=== PATIENT | male | born 1970 | race Caucasian/White ===

== ENCOUNTER 2017-10-04 17:17 | Emergency (ER) | payer MEDICAID ==
[2017-10-04 17:26] VITALS: BP 171/93
--- NOTE | 2017-10-04 19:09 | ED Physician Documentation ---
PD HPI HEENT - Stated complaint Stated Complaint: FACE ABCESS/CONGESTION - Chief complaint Chief Complaint: Heent - History obtained from History obtained from: Patient - History of Present Illness Timing - onset: How many days ago (3) Timing - duration: Days (3) Timing - details: Gradual onset, Still present (swelling of right cheek and pain in teeth upper that side.) Location: Tooth Associated symptoms: Congestion, Swollen nodes. No: Fever Similar symptoms before: Has not had sx before Recently seen: Not recently seen Review of Systems Constitutional: reports: Myalgias. denies: Fever, Chills Nose: reports: Congestion, Sinus pressure / pain Throat: denies: Sore throat PD PAST MEDICAL HISTORY - Past Medical History Past Medical History: Yes Cardiovascular: Hypertension Neuro: TIA - Past Surgical History Past Surgical History: Yes General: Bowel surgery Ortho: Other - Present Medications Home Medications: Ambulatory Orders Medication Instructions Recorded Confirmed Ibuprofen [Motrin] 800 mg PO Q8H PRN #30 tablet 08/29/16 Nadolol 20 mg ORAL DAILY 08/29/16 08/29/16 Albuterol Sulf [Ventolin Hfa 1 - 2 puffs INH Q4HR PRN #1 inhaler 10/04/17 Inhaler] Dexamethasone [Decadron] 4 mg PO DAILY #5 tablet 10/04/17 Doxycycline Monohydrate 100 mg PO BID #14 tablet 10/04/17 HYDROcod/ACETAM 5/325 [[place] 5/325] 1 tab PO Q6H PRN #15 tablet 10/04/17 - Allergies Allergies/Adverse Reactions: Allergies Allergy/AdvReac Type Severity Reaction Status Date / Time No Known Drug Allergies Allergy Verified 10/04/17 17:25 - Social History Does the pt smoke?: No Smoking Status: Never smoker Does the pt drink ETOH?: No Does the pt have substance abuse?: No - Immunizations Immunizations are current?: Yes - POLST Patient has POLST: No PD ED PE NORMAL - Vitals Vital signs reviewed: Yes - General General: Alert and oriented X 3, Well developed/nourished - HEENT HEENT: Moist mucous membranes - Neck Neck: Supple, no meningeal sign, No adenopathy - Cardiac Cardiac: RRR, No murmur - Respiratory Respiratory: Clear bilaterally - Abdomen Abdomen: Soft, Non tender - Male Male : Deferred - Rectal Rectal: Deferred - Back Back: No CVA TTP - Derm Derm: Normal color, Warm and dry - Neuro Neuro: Alert and oriented X 3, 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, No motor deficit, Normal speech Eye Opening: Spontaneous Motor: Obeys Commands Verbal: Oriented GCS Score: 15 - Psych Psych: Normal mood Results - Vitals Vitals: Oxygen O2 Source Room air PD MEDICAL DECISION MAKING - ED course Complexity details: d/w patient Departure - Departure Disposition: 01 Home, Self Care Clinical Impression: Dental infection Upper respiratory infection Qualifiers: URI type: unspecified URI Qualified Code(s): J06.9 - Acute upper respiratory infection, unspecified Condition: Stable Record reviewed to determine appropriate education?: Yes Instructions: ED Upper Resp Infec Abx Tx, ED Abscess Dental Prescriptions: Albuterol Sulf [Ventolin Hfa Inhaler] 1 - 2 puffs INH Q4HR PRN #1 inhaler PRN Reason: Shortness Of Air/Wheezing Dexamethasone [Decadron] 4 mg PO DAILY #5 tablet Doxycycline Monohydrate 100 mg PO BID #14 tablet HYDROcod/ACETAM 5/325 [[place] 5/325] 1 tab PO Q6H PRN #15 tablet PRN Reason: Pain Comments: For the dental infection, I would use ibuprofen 3 times a day for inflammation and pain. Add hydrocodone if needed for pain. Doxycycline antibiotic twice daily for a week for the infection. Warm moist towels to the area periodically to improve blood flow to help fight any infection. For the respiratory infection, this most likely is viral and treated with Decadron for bronchial inflammation and albuterol inhaler 2 puffs 4 times a day. The hydrocodone can be used for cough suppressant as well as the pain. It uncommonly would be bacterial but we be covering it with the antibiotics for the facial infection anyway. Recheck if not improving over the next few days. You will need to follow-up with the dentist for more definitive care of the tooth. Discharge Date/Time: 10/04/17 19:30
[2017-10-04] MEDS ORDERED: DEXAMETHASONE 10 MG/ML VIAL PO STA (19:19)
[2017-10-04] MEDS ORDERED: DOXYCYCLINE 100 MG TABLET PO STA (19:19)
[2017-10-04] MEDS ORDERED: IBUPROFEN 600 MG TABLET PO STA (19:19)
[2017-10-04] MEDS ORDERED: IBUPROFEN 600 MG TABLET PO ONE (19:29)
[2017-10-04] MEDS ORDERED: DEXAMETHASONE 10 MG/ML VIAL ONE (19:29)
[2017-10-04] MEDS ORDERED: DOXYCYCLINE 100 MG TABLET PO ONE (19:29)
== END 2017-10-04 19:30 | disposition home or self-care (01) ==
LOC: ED 17:17
DX: K04.7 Periapical abscess without sinus (principal); J06.9 Acute upper respiratory infection, unspecified; I10 Essential (primary) hypertension; Z86.73 Personal history of transient ischemic attack (TIA), and cerebral infarction without residual deficits
CPT/HCPCS: 99283; A9270

== ENCOUNTER 2018-09-10 20:52 | Emergency (ER) | payer MEDICAID ==
[2018-09-10 21:05] VITALS: BP 152/78
[2018-09-10 21:22] LABS: BASOPHILS % (AUTO) 0.6 %; EOSINOPHILS # (AUTO) 0.1 10^3/uL (0.0-0.7); EOSINOPHILS % (AUTO) 1.2 %; HGB - HEMOGLOBIN 13.2 g/dL (14.0-18.0); LYMPHOCYTES # (AUTO) 2.3 10^3/uL (1.5-3.5); MEAN CORPUSCULAR HEMOGLOBIN 31.7 pg (27.0-31.0); MEAN CORPUSCULAR HGB CONC 33.6 g/dL (32.0-36.0); MEAN CORPUSCULAR VOLUME 94.2 fL (80.0-94.0); MEAN PLATELET VOLUME 10.8 fL (7.4-11.4); MONOCYTES # (AUTO) 0.3 10^3/uL (0.0-1.0); MONOCYTES % (AUTO) 6.5 %; NEUTROPHILS # (AUTO) 2.4 10^3/uL (1.5-6.6); NEUTROPHILS % (AUTO) 46.7 %; PLT - PLATELET COUNT 131 10^3/uL (130-450); RED BLOOD COUNT 4.17 10^6/uL (4.70-6.10); RED CELL DISTRIBUTION WIDTH 12.8 % (12.0-15.0); WHITE BLOOD COUNT 5.2 x10^3/uL (4.8-10.8)
[2018-09-10 21:35] LABS: ALBUMIN 4.4 g/dL (3.2-5.5); ALBUMIN/GLOBULIN RATIO 1.8 (1.0-2.2); BILIRUBIN,TOTAL 0.6 mg/dL (0.2-1.0); CREATININE 1.2 mg/dL (0.6-1.2); TOTAL PROTEIN 6.8 g/dL (6.7-8.2)
--- NOTE | 2018-09-10 21:45 | ED Physician Documentation ---
PD HPI CHEST PAIN - Stated complaint Stated Complaint: CHEST PX - Chief complaint Chief Complaint: Cardiac - History obtained from History obtained from: Patient - History of Present Illness Timing - onset: How many days ago (2) Timing - onset during: Rest Timing - duration: Days (2) Timing - details: Abrupt onset, Now resolved, Waxing and waning Quality: Other (palpitations) Location: Left chest Radiation: No: Jaw, Neck, Back, Abdominal, Left upper extremity, Right upper extremity Improved by: Nothing Worsened by: Position Associated symptoms: Feeling faint / dizzy, Palpitations. 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 He does not have chest pain he does not have radiation of the palpitations. He does state that his put her head against his chest when t his was happening and she felt the sounds were irregular. The patient is not checked his pulse while this is been happening. He denies current shortness of breath cough or upper respiratory symptoms. He does have a history previously of asthmatic bronchitis. He denies any significant anxiety. He is currently getting ready to move from 5 days a week work to 6 days a week for the holiday season and he is usually working 10-12 hours/day. He states that he is getting good sleep and that he does not feel exhausted. He does not do drugs or alcohol he has 1 cup of coffee in the morning and he states that he uses an [id number] sleep aid to sleep at night and he generally sleeps well. Review of Systems Constitutional: denies: Fever, Chills, Myalgias Eyes: denies: Decreased vision Ears: denies: Ear pain Nose: denies: Rhinorrhea / runny nose, Congestion Throat: denies: Sore throat Cardiac: reports: Palpitations. denies: Chest pain / pressure, Pedal edema, Calf pain Respiratory: denies: Dyspnea, Cough GI: denies: Abdominal Pain, Nausea, Vomiting : denies: Dysuria, Frequency PD PAST MEDICAL HISTORY - Past Medical History Cardiovascular: Hypertension Neuro: Other Other Past Medical History: Occular stroke - Past Surgical History Past Surgical History: Yes General: Bowel surgery Ortho: Other - Present Medications Home Medications: Ambulatory Orders Medication Instructions Recorded Confirmed RX: Nadolol 20 mg ORAL DAILY 08/29/16 09/10/18 - Allergies Allergies/Adverse Reactions: Allergies Allergy/AdvReac Type Severity Reaction Status Date / Time No Known Drug Allergies Allergy Verified 09/10/18 21:00 - Social History Does the pt smoke?: No Smoking Status: Former smoker Does the pt drink ETOH?: No Does the pt have substance abuse?: No - Immunizations Immunizations are current?: Yes Immunizations: TDAP >10years/unknown - POLST Patient has POLST: No PD ED PE NORMAL - Vitals Vital signs reviewed: Yes (hypertensive ) - General General: No acute distress, Well developed/nourished - HEENT HEENT: Atraumatic, PERRL, EOMI, Ears normal, Moist mucous membranes, Pharynx benign - Neck Neck: Supple, no meningeal sign, No bony TTP - Cardiac Cardiac: RRR, No murmur - Respiratory Respiratory: No respiratory distress, Clear bilaterally, Other (no chest wall tenderness) - Abdomen Abdomen: Soft, Non tender - Back Back: No CVA TTP, No spinal TTP - Derm Derm: Normal color, Warm and dry, No rash - Extremities Extremities: No deformity, No edema - Neuro Neuro: Alert and oriented 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, 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, No motor deficit, No sensory deficit, Normal speech Eye Opening: Spontaneous Motor: Obeys Commands Verbal: Oriented GCS Score: 15 - Psych Psych: Normal mood, Normal affect Results - Vitals Vitals: Vital Signs - 24 hr 09/10/18 20:55 Temperature 36.0 C L Heart Rate 59 L Respiratory 19 Rate Blood Pressure 152/78 H O2 Saturation 100 Oxygen O2 Source Room air - EKG (time done) 2100 Rate: Rate (enter#) (51) Rhythm: NSR Ischemia: Normal ST segments Compare to prior EKG: Old EKG unavailable Computer interpretation: Agree with computer - Labs Labs: Laboratory Tests 09/10/18 09/10/18 09/10/18 21:14 21:19 21:19 WBC 5.2 RBC 4.17 L Hgb 13.2 L Hct 39.3 L MCV 94.2 H MCH 31.7 H MCHC 33.6 RDW 12.8 Plt Count 131 MPV 10.8 Neut # (Auto) 2.4 Lymph # (Auto) 2.3 [place] # (Auto) 0.3 Eos # (Auto) 0.1 Baso # (Auto) 0.0 Absolute Nucleated RBC 0.00 Nucleated RBC % 0.1 Sodium 142 Potassium 3.4 L Chloride 103 Carbon Dioxide 31 Anion Gap 8.0 BUN 14 Creatinine 1.2 Estimated GFR (MDRD) 65 L Glucose 117 H Calcium 9.0 Total Bilirubin 0.6 AST 26 ALT 14 Alkaline Phosphatase 78 Troponin I < 0.04 Total Protein 6.8 Albumin 4.4 Globulin 2.4 Albumin/Globulin Ratio 1.8 Lipase 29 - Rads (name of study) 2 view chest Radiology: Prelim report reviewed (Impression: Normal two-view chest radiography.), EMP read indepedently, See rad report PD MEDICAL DECISION MAKING - ED course Complexity details: reviewed old records, reviewed results, re-evaluated patient, considered differential, d/w patient, d/w family ED course: 48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 He has not clocked his heart rate with this and he does not have a fit bit. Today there are no abnormalities on evaluation and he is instructed to follow-up with his primary for monitoring. Departure - Departure Disposition: 01 Home, Self Care Clinical Impression: Palpitations Condition: Stable Instructions: ED Palpitations Follow-Up: [facility] [Provider Group] Comments: Eric we did not find any evidence to suggest an abnormality on the testing we did and your symptoms are intermittent. If you develop symptoms again specifically palpate your pulse and evaluated for regularity and rate. Follow-up with your primary care doctor for further workup. Return to the ED for persistent symptoms or rapid heart rate. Discharge Date/Time: 09/10/18 23:19
--- NOTE | 2018-09-10 22:12 | XRAY Report ---
Reason: palpitations Procedure Date: 09/10/2018 Accession Number: [id number] / [id number] Procedure: XR - Chest 2 View X-Ray CPT Code: 29171 FULL RESULT: EXAM: CHEST RADIOGRAPHY EXAM DATE: 09/10/2018 10:04 PM. CLINICAL HISTORY: Palpitations. COMPARISON: ABDOMEN/PELVIS W/O 08/29/2016 2:52 PM. TECHNIQUE: 2 views. FINDINGS: Lungs/Pleura: No focal opacities evident. No pleural effusion. No pneumothorax. Normal volumes. Mediastinum: Heart and mediastinal contours are unremarkable. Other: None. IMPRESSION: Normal 2-view chest radiography. RADIA
== END 2018-09-10 23:19 | disposition home or self-care (01) ==
LOC: ED 20:52
DX: R00.2 Palpitations (principal); I10 Essential (primary) hypertension; Z87.891 Personal history of nicotine dependence
CPT/HCPCS: 36415; 71046; 80053; 83690; 84484; 85025; 93005; 99283; 99284

== ENCOUNTER 2018-11-27 18:23 | Emergency (ER) | payer MEDICAID ==
[2018-11-27 18:30] VITALS: BP 165/93
[2018-11-27] MEDS ORDERED: HYDROcod/ACET 5/325 Prepack 4 PO STA (18:34)
[2018-11-27] MEDS ORDERED: CLINDAMYCIN 150 MG CAPSULE PO STA (18:34)
--- NOTE | 2018-11-27 18:38 | ED Physician Documentation ---
PD HPI HEENT - Stated complaint Stated Complaint: BROKEN TOOTH - Chief complaint Chief Complaint: Heent - History obtained from History obtained from: Patient - History of Present Illness Timing - onset: Other (He had a broken tooth for a long time on the left mandible that has been painful for the last 4 days without fevers or facial swelling.) Review of Systems Constitutional: denies: Fever, Chills Nose: denies: Rhinorrhea / runny nose Throat: reports: Dental pain / toothache. denies: Sore throat PD PAST MEDICAL HISTORY - Past Medical History Cardiovascular: Hypertension Neuro: Other - Past Surgical History Past Surgical History: Yes General: Bowel surgery Ortho: Other - Present Medications Home Medications: Ambulatory Orders Medication Instructions Recorded Confirmed Nadolol 20 mg ORAL DAILY 08/29/16 09/10/18 Clindamycin HCl [Clindamycin 300MG 300 mg PO Q6H #40 capsule 11/27/18 CAP] Hydrocodone/Acetaminophen 1 - 2 each PO Q6H PRN #14 tablet 11/27/18 [Hydrocodon-Acetaminophen 5-325] - Allergies Allergies/Adverse Reactions: Allergies Allergy/AdvReac Type Severity Reaction Status Date / Time No Known Drug Allergies Allergy Verified 11/27/18 18:30 - Social History Does the pt smoke?: No Smoking Status: Former smoker Does the pt drink ETOH?: No Does the pt have substance abuse?: No - Immunizations Immunizations are current?: Yes Immunizations: TDAP >10years/unknown - POLST Patient has POLST: No PD ED PE NORMAL - Vitals Vital signs reviewed: Yes - General General: Alert and oriented X 3, No acute distress - HEENT HEENT: Other (Generally poor dentition. There is a large cavity from a left mandibular premolar that is tender but without facial swelling, trismus, or sublingual edema.) - Neck Neck: Supple, no meningeal sign, No bony TTP, No bruit - Neuro Neuro: Alert and oriented X 3, Normal speech Results - Vitals Vitals: Vital Signs - 24 hr 11/27/18 18:29 Temperature 36.9 C Heart Rate 84 Respiratory 16 Rate Blood Pressure 165/93 H O2 Saturation 96 Oxygen O2 Source Room air PD MEDICAL DECISION MAKING - ED course ED course: The [place] prescription monitoring program was queried with regard to this patient. No concerning findings were found. Departure - Departure Disposition: Home, Self Care Clinical Impression: Dental infection Condition: Good Record reviewed to determine appropriate education?: Yes Instructions: ED Tooth Pain Prescriptions: Clindamycin HCl [Clindamycin 300MG CAP] 300 mg PO Q6H #40 capsule Hydrocodone/Acetaminophen [Hydrocodon-Acetaminophen 5-325] 1 - 2 each PO Q6H PRN #14 tablet PRN Reason: pain Comments: It is very important that you follow-up with a dentist. When it comes to dental problems like yours, the emergency department can only offer a short-term solution to your long-term problem. A couple of low cost options for dental care include: [facility] in [place], calls [phone] for an appointment Or [facility] in [place], call [phone] for an appointment. Do not drink or drive while taking narcotic pain medication. Note that many narcotic pain relievers also contain Tylenol/acetaminophen. Please ensure that your total dose of acetaminophen from all sources does not exceed 3 g (3000 mg) per day. You may get constipated while on this medication. Take a stool softener such as Colace twice a day while you are on it. Also add an [id number] laxative such as senna or MiraLAX on any day that you do not have a bowel movement. If you received a narcotic pain medication or sedative while in the emergency department, do not drive for the next 24 hours.
== END 2018-11-27 18:46 | disposition home or self-care (01) ==
LOC: ED 18:23
DX: K04.7 Periapical abscess without sinus (principal); K02.9 Dental caries, unspecified; I10 Essential (primary) hypertension; Z87.891 Personal history of nicotine dependence
CPT/HCPCS: 99282; 99283; A9270

== ENCOUNTER 2018-11-28 01:11 | Outpatient (CLI) | payer MEDICAID | END 2018-11-28 01:12 | disposition critical access hospital (66) | LOC: EMS 01:11 | PROVIDERS: ATTEND Surgery | DX: R42 Dizziness and giddiness (principal); K08.89 Other specified disorders of teeth and supporting structures | CPT/HCPCS: A0425; A0429 ==

== ENCOUNTER 2018-11-28 01:31 | Emergency (ER) | payer MEDICAID ==
[2018-11-28 01:36] VITALS: BP 134/75
[2018-11-28] MEDS ORDERED: IPRATROPIUM/ALBUTEROL 3 ML NEB INH STA (01:55)
[2018-11-28] MEDS ORDERED: SODIUM CHLORIDE 0.9% 1,000 ML IV ONE (01:55)
[2018-11-28] MEDS ORDERED: KETOROLAC 30 MG/ML VIAL IVP STA (01:55)
--- NOTE | 2018-11-28 02:50 | ED Physician Documentation ---
PD HPI HEENT - Stated complaint Stated Complaint: TOOTH PAIN - Chief complaint Chief Complaint: Heent - History obtained from History obtained from: Patient - History of Present Illness Timing - onset: How many hours ago (1) Timing - duration: Hours (1) Timing - details: Gradual onset Pain level max: 5 Pain level now: 5 Severity Comments: mild Location: Tooth Improves: Heat, Ice Worsens: No: Swalllowing, Noise, Position Associated symptoms: No: Fever, Congestion, Rhinorrhea, Trismus, Unable to swallow - Additional information Additional information: Patient seen this evening for dental pain. Discharged on clindamycin. Patient had stomach upset after taking clindamycin and returns. Review of Systems Constitutional: reports: Reviewed and negative Eyes: reports: Reviewed and negative Ears: reports: Reviewed and negative Nose: reports: Reviewed and negative Throat: reports: Reviewed and negative Cardiac: reports: Reviewed and negative Respiratory: reports: Reviewed and negative GI: reports: Reviewed and negative : reports: Reviewed and negative Skin: reports: Reviewed and negative Musculoskeletal: reports: Reviewed and negative Neurologic: reports: Reviewed and negative Psychiatric: reports: Reviewed and negative Endocrine: reports: Reviewed and negative Immunocompromised: reports: Reviewed and negative PD PAST MEDICAL HISTORY - Past Medical History Cardiovascular: Hypertension Neuro: Other - Past Surgical History Past Surgical History: Yes General: Bowel surgery Ortho: Other - Present Medications Home Medications: Ambulatory Orders Medication Instructions Recorded Confirmed Nadolol 20 mg ORAL DAILY 08/29/16 09/10/18 Clindamycin HCl [Clindamycin 300MG 300 mg PO Q6H #40 capsule 11/27/18 CAP] Hydrocodone/Acetaminophen 1 - 2 each PO Q6H PRN #14 tablet 11/27/18 [Hydrocodon-Acetaminophen 5-325] Penicillin V Potassium 500 mg PO Q6HR #40 tablet 11/28/18 - Allergies Allergies/Adverse Reactions: Allergies Allergy/AdvReac Type Severity Reaction Status Date / Time No Known Drug Allergies Allergy Verified 11/27/18 18:30 - Living Situation Living Situation: reports: Alone Living Arrangement: reports: At home - Social History Does the pt smoke?: No Smoking Status: Never smoker Does the pt drink ETOH?: No Does the pt have substance abuse?: No - Family History Family history: reports: Other (Reviewed and not pertinent) - Immunizations Immunizations are current?: Yes Immunizations: TDAP >10years/unknown - POLST Patient has POLST: No PD ED PE NORMAL - Vitals Vital signs reviewed: Yes - General General: Alert and oriented X 3, No acute distress - HEENT HEENT: PERRL, Other (No trismus, Poor dentition) - Neck Neck: Supple, no meningeal sign - Cardiac Cardiac: RRR, No murmur - Respiratory Respiratory: Clear bilaterally - Abdomen Abdomen: Normal bowel sounds, Soft, Non tender, Non distended - Derm Derm: Warm and dry - Extremities Extremities: No deformity - Neuro Neuro: Alert and oriented X 3 - Psych Psych: Normal mood, Normal affect Results - Vitals Vitals: Vital Signs - 24 hr 11/28/18 01:33 Temperature 36.1 C L Heart Rate 78 Respiratory 26 H Rate Blood Pressure 134/75 H O2 Saturation 100 Oxygen O2 Source Room air PD MEDICAL DECISION MAKING - ED course Complexity details: reviewed results, re-evaluated patient, considered differential, d/w patient ED course: 48-year-old male seen earlier this evening for dental pain. Patient presents with stomach upset after taking clindamycin as well as dental pain. Pain treated with IV Toradol. Patient had subjective chest tightness and this improved with a DuoNeb.Patient switched to penicillin from clindamycin.Referred to dentist for follow-up. Departure - Departure Disposition: 65 Psych Hosp/Unit DC/Xfer Clinical Impression: Pain, dental Condition: Good Instructions: ED Tooth Pain Follow-Up: Your, dentist [Other] Prescriptions: Penicillin V Potassium 500 mg PO Q6HR #40 tablet Comments: Stop taking clindamycin. Instead take penicillin as prescribed. Use Tylenol and ibuprofen as needed for pain according to bottle instructions. Follow-up with dentist within 24 hours.
== END 2018-11-28 03:31 | disposition home or self-care (01) ==
LOC: EDUNIT# → ED 01:31
DX: K08.89 Other specified disorders of teeth and supporting structures (principal); K30 Functional dyspepsia; T36.8X5A Adverse effect of other systemic antibiotics, initial encounter; R07.89 Other chest pain; I10 Essential (primary) hypertension
CPT/HCPCS: 94664; 96361; 96374; 99283

== ENCOUNTER 2018-12-16 10:23 | Outpatient (CLI) | payer MEDICAID ==
[2018-12-16 10:53] LABS: BASOPHILS # (AUTO) 0.1 10^3/uL (0.0-0.1); BASOPHILS % (AUTO) 0.7 %; EOSINOPHILS # (AUTO) 0.1 10^3/uL (0.0-0.7); EOSINOPHILS % (AUTO) 0.7 %; HGB - HEMOGLOBIN 13.4 g/dL (14.0-18.0); LYMPHOCYTES # (AUTO) 1.7 10^3/uL (1.5-3.5); LYMPHOCYTES % (AUTO) 17.8 %; MEAN CORPUSCULAR HEMOGLOBIN 32.9 pg (27.0-31.0); MEAN CORPUSCULAR HGB CONC 35.8 g/dL (32.0-36.0); MEAN CORPUSCULAR VOLUME 91.8 fL (80.0-94.0); MEAN PLATELET VOLUME 10.2 fL (7.4-11.4); MONOCYTES # (AUTO) 0.6 10^3/uL (0.0-1.0); MONOCYTES % (AUTO) 6.5 %; NEUTROPHILS % (AUTO) 74.3 %; PLT - PLATELET COUNT 235 10^3/uL (130-450); RED BLOOD COUNT 4.06 10^6/uL (4.70-6.10); WHITE BLOOD COUNT 9.4 x10^3/uL (4.8-10.8)
[2018-12-16 11:11] LABS: % IRON SATURATION 39 % (20-50); BUN - BLOOD UREA NITROGEN 30 mg/dL (6-20); CALCIUM 9.4 mg/dL (8.5-10.3); CARBON DIOXIDE - CO2 26 mmol/L (21-32); CHLORIDE 99 mmol/L (101-111); CHOL/HDL RATIO 3.3 (<5.0); CHOLESTEROL 161 mg/dL; CREATININE 1.4 mg/dL (0.6-1.2); GFR - MDRD 55 (>89); GLUCOSE 106 mg/dL (70-100); HDL CHOLESTEROL 49 mg/dL; IRON 122 ug/dL (45-182); LDL CHOLESTEROL,CALCULATED 99 mg/dL; SODIUM 138 mmol/L (135-145); TOTAL IRON BINDING CAPACITY 312 ug/dL (250-450); TRANSFERRIN 223 mg/dL (180-329); VLDL CHOLESTEROL 13 mg/dL
[2018-12-16 11:19] LABS: THYROID STIMULATING HORMONE 1.84 uIU/mL (0.34-5.60)
[2018-12-16 11:25] LABS: FERRITIN 1058.3 ng/mL (23.9-336.2)
== END 2018-12-16 10:24 | disposition home or self-care (01) ==
LOC: LAB 10:23
PROVIDERS: ATTEND Physician Assistant Medical
DX: Z00.00 Encounter for general adult medical examination without abnormal findings (principal); I10 Essential (primary) hypertension; D64.9 Anemia, unspecified
CPT/HCPCS: 36415; 80048; 80061; 82728; 83540; 83721; 84443; 84466; 85025